=== PATIENT | female | born 1995 | race Caucasian/White ===

== ENCOUNTER 2018-01-08 13:58 | Emergency (ER) | payer BC, OTHER ==
[~2018-01-08] VITALS: Ht 160 cm; Wt 64.8 kg
[2018-01-08 14:00] VITALS: Ht 160 cm; Wt 64.8 kg
[2018-01-08] MEDS ORDERED: DiphenhydrAMINE HCL 50 MG/ML VIAL IV STA (14:09)
[2018-01-08] MEDS ORDERED: METHYLPREDNISOLONE 125 MG VIAL IV STA (14:09)
--- NOTE | 2018-01-08 14:12 | EMERGENCY ROOM VISIT NOTE ---
History First contact with patient: 14:01 Chief Complaint: ALLERGIC REACTION Stated Complaint: CHEST PAIN, VOMITING Nursing Triage Summary: triage note: pt reports "i accidently ate a moldy pancake and i have a lot of food allergies and this feels like i ate a handful of peanuts i think i am allergic to the mold because i have eaten the pancakes before." pt reports pain with swallowing. pt reports shortness of breath and chest pain. pt reports taking three children's benedryl. pt has epi pen but did not use. History of Present Illness The patient is a 22 year old female who presents to the Emergency Room with complaints of allergic reaction. She reports a history of candy, mold, shellfish , and peanuts. She reports she had 3 leftover small blueberry pancakes from a restaurant which were on top of each other, she started eating the top one then looked under it and it was covered in mold. She reports she started to feel sick and rinsed her mouth out and then felt her tongue swell. She denied any hives or airway swelling. She has an Epi pen but did not use it. She decided to come to the hospital and took 3 x Children's Benadryl en route. She denies any wheezing at this time. She is able to speak in full sentences. Review of Systems See HPI for pertinent positives & negatives. A total of 10 systems reviewed and were otherwise negative. Past Medical/Surgical History Medical Problems: (1) No Known Active Medical Problems PMHx: Allergic reactions PSHx: None Family History No pertinent FHx Social History Smoking Status: Never Smoker Alcohol Use: occasionally Drug Use: none Marital Status: single Housing Status: lives with friends Current/Historical Medications Scheduled Control Pills ( Control Pills), 1 TAB PO QAM [Fluoxetine Liquid], 7 ML PO DAILY Allergies Evans, Shellfish, Peanut, Mold. Physical Exam Vital Signs Date Time Temp Pulse Resp B/P (MAP) Pulse Ox O2 Delivery O2 Flow Rate FiO2 01/08/18 14:00 36.9 72 18 130/84 96 Room Air 01/08/18 14:00 Room Air Physical Exam GENERAL: Awake, alert, well-appearing, in no acute distress. Airway intact. HENT: Normocephalic, atraumatic. Oropharynx unremarkable. EYES: Normal conjunctiva. Sclera non-icteric. NECK: Supple. No nuchal rigidity. FROM. No JVD. RESPIRATORY: Clear to auscultation. CARDIAC: Regular rate, normal rhythm. Extremities warm and well perfused. Pulses equal. ABDOMEN: Soft, non-distended. No tenderness to palpation. No rebound or guarding. No masses. RECTAL: Deferred. MUSCULOSKELETAL: Chest examination reveals no tenderness. The back is symmetrical on inspection without obvious abnormality. There is no CVA tenderness to palpation. No joint edema. LOWER EXTREMITIES: Calves are equal size bilaterally and non-tender. No edema. No discoloration. NEURO: Normal sensorium. No sensory or motor deficits noted. SKIN: No rash or jaundice noted. No hives. Medical Decision & Procedures Medications Administered Medications (Trade) Dose Ordered Sig/Bravo Route Start Time Stop Time Status Last Admin Dose Admin Diphenhydramine HCl (Benadryl Inj) 50 mg NOW STAT IV 01/08/18 14:09 01/08/18 14:10 DC 01/08/18 14:32 50 MG Methylprednisolone Sodium Succinate (Solu-Medrol IV) 125 mg NOW STAT IV 01/08/18 14:09 01/08/18 14:10 DC 01/08/18 14:32 125 MG ED Course 13:55: I saw and evaluated the patient in room B4B. A complete history and physical were perforemd. 14:09: I discussed the case w/Dr. Gagnon, Attending ED Physician. I ordered Pepcid 20mg IV, Benadryl 50mg IV, SoluMedrol 125mg IV x 1 dose. 14:50: I checked on the patient again, she was feeling well. She still did not have any new symptoms. 15:45: I checked on the patient again, she felt well enough to go home. She was discharged home in good condition. Medical Decision 22 yo F who presents with vomiting, shortness of breath after moldy food ingestion - differential includes: acute allergic reaction, type IV hypersensitivity reaction, anxiety, angioedema, gastritis. She had an IV placed. She did not have any airway compromise or hives at any point. She was given a dose of Pepcid, Benadryl and Solu-Medrol IV. An hour later, she felt significantly better. She did not vomit throughout her stay. She was deemed stable for discharge and appropriate anticipatory guidance was provided. She was discharged home in good condition with her friend. Impression Primary Impression: Allergic reaction Departure Information Dispostion Home / Self-Care Condition GOOD Referrals No Doctor, Assigned (PCP) Patient Instructions [facility]
[2018-01-08] MEDS ORDERED: BCPILLS PO (14:46)
[2018-01-08] MEDS ORDERED: FLUOXETINE PO (14:46)
[2018-01-08 16:00] VITALS: BP 130/84; PULSE 72; TEMP 36.9; O2SAT 96
--- NOTE | 2018-01-08 17:27 | EMERGENCY ROOM VISIT NOTE ---
History Report prepared by Nette: Ross Pepper Under the Supervision of: Dr. Antwon Gagnon M.D. First contact with patient: 14:01 Chief Complaint: ALLERGIC REACTION Stated Complaint: CHEST PAIN, VOMITING Nursing Triage Summary: triage note: pt reports "i accidently ate a moldy pancake and i have a lot of food allergies and this feels like i ate a handful of peanuts i think i am allergic to the mold because i have eaten the pancakes before." pt reports pain with swallowing. pt reports shortness of breath and chest pain. pt reports taking three children's benedryl. pt has epi pen but did not use. History of Present Illness The patient is a 22 year old female who presents to the Emergency Room with complaints of a generalized allergic reaction beginning shortly prior to arrival. Her symptoms include shortness of breath, vomiting, tongue and throat swelling, nausea, and chest pain. Her symptoms have since resolved. The patient states that she ate a moldy pancake 30 minutes [employer]. She has a history of peanut , mold, armand, and shellfish allergies. She states that she took three doses of children's Benadryl prior to arrival which has improved her symptoms. The patient notes that she was able to eat the pancakes at the restaurant initially without problem. She states that she ate the moldy pancake because she ate an entire pancake before noticing mold on the second pancake. She does not believe she consumed any tree nuts. The patient adds that her chest pain, and vomiting began en route. She denies abdominal pain, or diarrhea. Her previous mold allergies were related to breathing in house mold, and has never consumed mold before. Source of History: patient Onset: 30 minutes ago Position: other (generalized) Quality: other (allergic reaction) Timing: resolved Modifying Factors (Relieving): other (Benadryl) Associated Symptoms: + chest pain, + SOB, + nausea, + vomiting, No abdominal pain, No diarrhea Note: Positive: resolved throat and tongue swelling. Review of Systems See HPI for pertinent positives & negatives. A total of 10 systems reviewed and were otherwise negative. Past Medical & Surgical Medical Problems: (1) No Known Active Medical Problems Family History No pertinent family history stated. Social History Smoking Status: Never Smoker Alcohol Use: occasionally Drug Use: none Marital Status: single Housing Status: lives with friends Current/Historical Medications Scheduled Control Pills ( Control Pills), 1 TAB PO QAM [Fluoxetine Liquid], 7 ML PO DAILY Allergies Coded Allergies: Armand (Unverified Allergy, Severe, SWELLING OF TONGUE, 01/08/18) NUTS (Unverified Allergy, Severe, TONGUE SWELLS/HARD TO BREATH, 01/08/18) Codeine (Unverified Allergy, Intermediate, HIVES, 01/08/18) Uncoded Allergies: CT DYE (Adverse Reaction, Severe, CAN'T BREATH/METAL TASTE IN MOUTH, ) MOLD (Adverse Reaction, Severe, PROBLEMS BREATHING/CHEST PAIN, 01/08/18) Physical Exam Vital Signs Date Time Temp Pulse Resp B/P (MAP) Pulse Ox O2 Delivery O2 Flow Rate FiO2 01/08/18 16:00 36.9 72 18 130/84 96 01/08/18 14:00 36.9 72 18 130/84 96 Room Air 01/08/18 14:00 Room Air Physical Exam Constitutional: Vital signs reviewed. Eyes: Pupils are equal round reactive to light. Conjunctiva are noninjected. ENT: Pharynx is clear without erythema or exudate. Mucous membranes are moist. No swelling to the tongue or uvula. Neck supple without meningeal signs. Respiratory: Clear to auscultation bilaterally. Breath sounds are equal bilaterally. No wheezing or stridor. Cardiovascular: Regular rate and rhythm. No rubs or gallops. GI: Soft, nondistended and nontender. Bowel sounds are present. Musculoskeletal: No peripheral edema. No lower extremity tenderness. Integumentary: No cyanosis. No erythema or urticaria. Neurological: The patient is awake and alert. No focal deficits. Psychiatric: Normal affect. Medical Decision & Procedures Medications Administered Medications (Trade) Dose Ordered Sig/Bravo Route Start Time Stop Time Status Last Admin Dose Admin Diphenhydramine HCl (Benadryl Inj) 50 mg NOW STAT IV 01/08/18 14:09 01/08/18 14:10 DC 01/08/18 14:32 50 MG Methylprednisolone Sodium Succinate (Solu-Medrol IV) 125 mg NOW STAT IV 01/08/18 14:09 01/08/18 14:10 DC 01/08/18 14:32 125 MG ED Course 1401: The patient was evaluated in room B4B. A complete history and physical exam was performed. 1409: Ordered Solu-Medrol 125 mg IV, Benadryl Inj 50 mg IV. 1545: Upon reevaluation, the patient appeared to have improvement of her symptoms. I discussed kari's findings with her. She verbalized agreement of the treatment plan. The patient was discharged home. Medical Decision Resident Physician Supervision Note: I did evaluate and examine this patient myself. I did guide management for the patient. I agree with the resident's Dr. Kati Garcia assessment as discussed. Please see the resident's dictation for further details. This is a 22-year-old female presents with difficulty breathing and vomiting after eating moldy pancakes. Differential diagnosis includes anaphylaxis, acute allergic reaction, type IV hypersensitivity reaction, panic attack, gastritis. I did perform a limited focused review of portions of the patient's old chart on the electronic medical record. The patient has had no prior visits to this hospital. I did evaluate the patient as noted above. IV access was established. The patient was treated with IV Benadryl and Solu-Medrol. She was also given Pepcid. On my examination patient has no symptoms. She is feeling much better. We did observe her for some time here. She had no evidence of worsening of her symptoms or recurrence of her symptoms. She was warned should she have any worsening symptoms she should return and get reevaluated. She was discharged in good condition. Medication Reconcilliation Current Medication List: was personally reviewed by me Blood Pressure Screening Patient's blood pressure: Elevated blood pressure Blood pressure disposition: Elevated BP felt to be situational Impression Primary Impression: Allergic reaction Scribe Attestation The scribe's documentation has been prepared under my direct and personally reviewed by me in its entirety. I confirm that the note above accurately reflects all work, treatment, procedures, and medical decision making performed by me. Departure Information Dispostion Home / Self-Care Referrals No Doctor, Assigned (PCP) Forms HOME CARE DOCUMENTATION FORM, IMPORTANT VISIT INFORMATION Patient Instructions Allergens Mold, My ipvive Additional Instructions Avoid any foods which are old or not cooked properly, in particular those which you are allergic to. You were given a dose of steroids, Pepcid, and Benadryl. If you notice any change in your symptoms, including shortness of breath, chest pain, tongue swelling, please seek medical attention. You should also ensure you keep your Epi pen with you at all times. Problem Qualifiers Primary Impression: Allergic reaction Encounter type: initial encounter Qualified Codes: T78.40XA - Allergy, unspecified, initial encounter
== END 2018-01-08 16:36 | disposition home or self-care (01) ==
LOC: C.EDB 13:59
DX: T78.40XA Allergy, unspecified, initial encounter (principal); X58.XXXA Exposure to other specified factors, initial encounter; Z91.018 Allergy to other foods; Z91.013 Allergy to seafood; Z91.010 Allergy to peanuts